=== PATIENT | female | born 1940 | race Caucasian/White ===

== ENCOUNTER 2021-12-20 11:15 | Day surgery (SDC) | payer OTHER ==
[2021-12-20] MEDS ORDERED: FERRIC CARBOXYMALTOSE 750 MG in SODIUM CHLORIDE 250 ML IVPB SCH (11:45)
[2021-12-20 13:17] VITALS: BP 125/50; PULSE 58; RESP 16; TEMP 99
== END 2021-12-20 14:00 | disposition home or self-care (01) ==
LOC: FM/S 11:15 → FINFUSION 11:15
PROVIDERS: ATTEND Nurse Practitioner Adult Health
PROC: 3E033GC Introduction of Other Therapeutic Substance into Peripheral Vein, Percutaneous Approach (ICD-10-PCS; principal; 2021-12-20)
DX: D50.9 Iron deficiency anemia, unspecified (principal)
CPT/HCPCS: 96365; J1439

== ENCOUNTER 2021-12-27 08:47 | Day surgery (SDC) | payer OTHER ==
[2021-12-27] MEDS ORDERED: FERRIC CARBOXYMALTOSE 750 MG in SODIUM CHLORIDE 250 ML IVPB SCH (09:15)
[2021-12-27 10:58] VITALS: BP 142/50; PULSE 68; RESP 16; TEMP 99
== END 2021-12-27 11:14 | disposition home or self-care (01) ==
LOC: FINFUSION 08:47 → FM/S 08:53 → FINFUSION 11:14
PROVIDERS: ATTEND Nurse Practitioner Adult Health
PROC: 3E033GC Introduction of Other Therapeutic Substance into Peripheral Vein, Percutaneous Approach (ICD-10-PCS; principal; 2021-12-27)
DX: D50.9 Iron deficiency anemia, unspecified (principal)
CPT/HCPCS: 96365; J1439

== ENCOUNTER 2023-01-18 11:21 | Inpatient (IN) | payer OTHER ==
[~2023-01-18 11:21] MED LIST: SODIUM CHLORIDE 0.9% 500 ML INFUS.BAG IV ONE
[2023-01-18] MEDS ORDERED: SODIUM CHLORIDE 0.9% 500 ML INFUS.BAG IV ONE (12:32)
[2023-01-18 13:35] LABS: BASO % 0.3 % (0-2.0); HEMATOCRIT 38.8 % (32.4-45.2); HEMOGLOBIN 12.6 GM/dL (10.7-15.3); LYMPH % 6.1 % (8-40); MCH 29.6 pg (25.7-33.7); MCHC 32.5 g/dl (32.0-36.0); MONO % 6.9 % (3.8-10.2); NEUT % 86.7 % (42.8-82.8); RBC 4.27 M/mm3 (3.60-5.2); RDW 13.1 % (11.6-15.6); WHITE BLOOD COUNT 13.3 K/mm3 (4.0-10.0)
[2023-01-18 13:42] LABS: INR 1.07 (0.83-1.09); PROTHROMBIN TIME (PATIENT) 12.4 SEC (9.7-13.0)
[2023-01-18 13:51] LABS: ACTIVATED PTT 16.6 SECONDS (25.2-36.5)
[2023-01-18 14:03] LABS: POTASSIUM 4.1 mmol/L (3.5-5.1)
[2023-01-18 14:05] LABS: ALBUMIN 3.6 g/dl (3.4-5.0); BLOOD UREA NITROGEN 18.5 mg/dL (7-18); CALCIUM 8.6 mg/dL (8.5-10.1); MAGNESIUM 1.9 mg/dL (1.8-2.4)
[2023-01-18 14:10] LABS: BILIRUBIN,TOTAL 0.7 mg/dL (0.2-1); CREATININE 0.7 mg/dL (0.55-1.3); TOT PROT 7.1 g/dl (6.4-8.2)
[2023-01-18 14:11] LABS: LACTIC ACID 2.4 mmol/L (0.4-2.0)
[2023-01-18 14:52] LABS: MEAN PLT VOLUME 9.7 fl (7.5-11.1); PLATELET COUNT 167 10^3/uL (134-434)
[2023-01-18 15:52] LABS: EPI CELLS 13 /uL (0-25.1); HYALINE CASTS 0 /uL (0-3.1); URINE APPEARANCE CLEAR; URINE BACTERIA 120 /uL (0-1359); URINE BILIRUBIN NEGATIVE (NEGATIVE); URINE COLOR YELLOW; URINE GLUCOSE (UA) NEGATIVE (NEGATIVE); URINE KETONE 1+ (NEGATIVE); URINE LEUK ESTERASE TRACE (NEGATIVE); URINE NITRITE NEGATIVE (NEGATIVE); URINE PROTEIN 1+ (NEGATIVE); URINE RBC 17 /uL (0-23.9); URINE UROBILINOGEN 0.2 mg/dL (0.2-1.0); URINE WBC 33 /uL (0-25.8)
[2023-01-18] MEDS ORDERED: VANCOMYCIN 1,000 MG in DEXTROSE 5%-WATER - 250 ML IVPB ONE (16:22)
[2023-01-18] MEDS ORDERED: VANCOMYCIN 1 GRAM (PRE-DOCKED) 1,000 MG/250 ML BAG IVPB ONE (16:37)
[2023-01-18 21:21] VITALS: BMI 20.2
[2023-01-18] MEDS ORDERED: ACETAMINOPHEN 325 MG TABLET (FP) PO PRN (21:57)
[2023-01-18] MEDS: ATORVASTATIN CA 20 MG TABLET (FP) PO SCH (22:57)
[2023-01-18] MEDS: LATANOPROST 0.005% OPHTH SOLN 2.5ML BOTTLE OU SCH (23:00)
[2023-01-19] MEDS ORDERED: VANCOMYCIN/WATER FOR INJ (PEG) 1,000 MG/200 ML BAG IVPB SCH (05:00)
[2023-01-19] MEDS ORDERED: VANCOMYCIN 1,000 MG in DEXTROSE 5%-WATER - 250 ML IVPB SCH (05:00)
[2023-01-19 09:37] LABS: BASO % 0.7 % (0-2.0); EOS % 0.4 % (0-4.5); HEMATOCRIT 35.5 % (32.4-45.2); HEMOGLOBIN 11.8 GM/dL (10.7-15.3); LYMPH % 18.7 % (8-40); MCH 30.1 pg (25.7-33.7); MCHC 33.3 g/dl (32.0-36.0); MEAN CELL VOLUME 90.3 fl (80-96); MEAN PLT VOLUME 9.2 fl (7.5-11.1); NEUT % 68.2 % (42.8-82.8); PLATELET COUNT 178 10^3/uL (134-434); RBC 3.93 M/mm3 (3.60-5.2); RDW 13.4 % (11.6-15.6); WHITE BLOOD COUNT 9.7 K/mm3 (4.0-10.0)
[2023-01-19 10:17] LABS: POTASSIUM 3.7 mmol/L (3.5-5.1)
[2023-01-19 10:28] LABS: BLOOD UREA NITROGEN 15.2 mg/dL (7-18); CALCIUM 8.2 mg/dL (8.5-10.1); MAGNESIUM 1.9 mg/dL (1.8-2.4)
[2023-01-19 10:31] LABS: CREATININE 0.6 mg/dL (0.55-1.3)
[2023-01-19 10:32] LABS: BILIRUBIN,TOTAL 0.8 mg/dL (0.2-1); TOT PROT 6.2 g/dl (6.4-8.2)
[2023-01-19] MEDS: LATANOPROST 0.005% OPHTH SOLN 2.5ML BOTTLE OU SCH (21:11)
[2023-01-19] MEDS: ATORVASTATIN CA 20 MG TABLET (FP) PO SCH (21:12)
[2023-01-20] MEDS ORDERED: LACTATED RINGERS SOLUTION 1,000 ML/1,000 ML INFUS.BAG IV SCH (17:30)
[2023-01-20] MEDS: ATORVASTATIN CA 20 MG TABLET (FP) PO SCH (21:45)
[2023-01-20] MEDS: LATANOPROST 0.005% OPHTH SOLN 2.5ML BOTTLE OU SCH (21:46)
[2023-01-21] MEDS ORDERED: ASPIRIN 81 MG CHEWABLE TABLETS PO SCH (13:30)
[2023-01-21 20:42] VITALS: PULSE 86
[2023-01-21] MEDS: LATANOPROST 0.005% OPHTH SOLN 2.5ML BOTTLE OU SCH (21:37)
[2023-01-21] MEDS ORDERED: HEPARIN NA (PORCINE) 5,000 UNITS/ML 1ML VIAL SQ SCH (22:00)
[2023-01-21] MEDS ORDERED: ATORVASTATIN CA 40 MG TABLET (FP) PO SCH (22:00)
[2023-01-21 23:31] VITALS: BP 133/76; RESP 20; TEMP 100.2
== END 2023-01-21 23:30 | disposition short-term general hospital (02) | DRG 64 ==
LOC: JER 11:21 → JERBED 18:39 → J4W 20:37
PROVIDERS: ADMIT Internal Medicine; ATTEND Family Medicine
DX: I63.511 Cerebral infarction due to unspecified occlusion or stenosis of right middle cerebral artery (principal); G93.41 Metabolic encephalopathy; T63.441A Toxic effect of venom of bees, accidental (unintentional), initial encounter; Y92.89 Other specified places as the place of occurrence of the external cause; E78.5 Hyperlipidemia, unspecified; R55 Syncope and collapse; R42 Dizziness and giddiness; Z85.3 Personal history of malignant neoplasm of breast
CPT/HCPCS: 0241U-QW; 36415; 70450-TC; 70496-TC; 70551-TC; 71045-TC-FY; 72100-TC-FY; 72125-TC; 73110-TC-LT-FY; 73130-TC-LT-FY; 80053; 80061; 81003; 82550; 82553; 82962; 83605; 83735; 84443; 84484; 85025; 85610; 85730; 87040; 87086; 93005; 93010; 93306-TC; 93880-TC; 97116-GP; 97161-GP; 99285-25; J1644; Q9967

== ENCOUNTER 2024-09-12 10:11 | Inpatient (IN) | payer OTHER ==
[2024-09-12] MEDS ORDERED: levETIRAcetam 500 MG/5 ML INJECTION VIAL IVPB ONE (11:02)
[2024-09-12] MEDS: levETIRAcetam 500 MG/5 ML INJECTION VIAL IVPB ONE (11:07)
[2024-09-12 11:21] LABS: ABSOLUTE IMMATURE GRANULOCYTES 0.02 x10^3/uL (0.0-0.031); BASOPHILS # 0.02 x10^3/uL (0.01-0.08); EOSINOPHIL % 0.9 % (0.7-5.8); EOSINOPHILS # 0.05 x10^3/uL (0.04-0.36); HEMATOCRIT 37.9 % (34.1-44.9); HEMOGLOBIN 11.8 g/dL (11.2-15.7); MCHC 31.1 g/dl (32.2-35.5); MEAN CELL VOLUME 97.7 fl (79.4-94.8); MEAN PLT VOLUME 9.4 fl (9.4-12.3); MONOCYTE # 0.37 x10^3/uL (0.24-0.86); MONOCYTE % 6.3 % (4.7-12.5); PLATELET COUNT 229 x10^3/uL (182-369); RDW 13.6 % (12.5-17.0)
[2024-09-12 11:28] LABS: INR 1.47 (0.83-1.09); PROTHROMBIN TIME (PATIENT) 16.2 SEC (9.7-13.0)
[2024-09-12 11:31] LABS: ACTIVATED PTT 29.4 SECONDS (25.2-36.5)
[2024-09-12 11:43] LABS: POTASSIUM 4.1 mmol/L (3.5-5.1)
[2024-09-12 11:46] LABS: ALBUMIN 3.5 g/dl (3.4-5.0)
[2024-09-12 11:49] LABS: CREATININE 0.5 mg/dL (0.55-1.3)
[2024-09-12 11:50] LABS: TOT PROT 6.9 g/dl (6.4-8.2)
[2024-09-12 11:52] LABS: BILIRUBIN,TOTAL 0.6 mg/dL (0.2-1)
[2024-09-12 14:53] LABS: EPI CELLS 3 /uL (0-25.1); HYALINE CASTS 0 /uL (0-3.1); PH,URINE 7.5 (5.0-8.0); URINE APPEARANCE CLEAR; URINE BACTERIA 4 /uL (0-1359); URINE BILIRUBIN NEGATIVE (NEGATIVE); URINE COLOR YELLOW; URINE GLUCOSE (UA) NEGATIVE (NEGATIVE); URINE KETONE NEGATIVE (NEGATIVE); URINE LEUK ESTERASE NEGATIVE (NEGATIVE); URINE NITRITE NEGATIVE (NEGATIVE); URINE PROTEIN TRACE (NEGATIVE); URINE RBC 387 /uL (0-23.9); URINE UROBILINOGEN 0.2 mg/dL (0.2-1.0); URINE WBC 3 /uL (0-25.8)
[2024-09-12] MEDS ORDERED: LORazepam 2 MG/ML SDV VIAL IVPUSH STA (17:12)
[2024-09-12 17:32] VITALS: BMI 17.2
[2024-09-12] MEDS: RIVAROXABAN 20 MG TABLET PO SCH (21:20)
[2024-09-12] MEDS: ATORVASTATIN CA 40 MG TABLET (FP) PO SCH (21:20)
[2024-09-12] MEDS: levETIRAcetam 500 MG TABLET (FP) PO SCH (21:20)
[2024-09-13 06:53] LABS: ABSOLUTE IMMATURE GRANULOCYTES 0.01 x10^3/uL (0.0-0.031); BASOPHILS # 0.04 x10^3/uL (0.01-0.08); EOSINOPHIL % 1.3 % (0.7-5.8); HEMATOCRIT 34.8 % (34.1-44.9); MCHC 31.6 g/dl (32.2-35.5); MEAN CELL VOLUME 95.9 fl (79.4-94.8); MEAN PLT VOLUME 9.6 fl (9.4-12.3); MONOCYTE # 0.98 x10^3/uL (0.24-0.86); MONOCYTE % 12.9 % (4.7-12.5); PLATELET COUNT 243 x10^3/uL (182-369); RDW 13.4 % (12.5-17.0)
[2024-09-13 07:15] LABS: ALBUMIN 3.1 g/dl (3.4-5.0); CALCIUM 9.3 mg/dL (8.5-10.1)
[2024-09-13 07:16] LABS: BLOOD UREA NITROGEN 21.4 mg/dL (7-18); MAGNESIUM 1.7 mg/dL (1.8-2.4)
[2024-09-13 07:19] LABS: CREATININE 0.6 mg/dL (0.55-1.3); PHOSPHOROUS 3.6 mg/dL (2.5-4.9)
[2024-09-13 07:20] LABS: BILIRUBIN,TOTAL 0.9 mg/dL (0.2-1); TOT PROT 6.2 g/dl (6.4-8.2)
[2024-09-15 01:55] VITALS: RESP 16
[2024-09-15] MEDS: MELATONIN 5 MG TABLETS PO ONE (02:44)
[2024-09-15 09:34] VITALS: BP 118/65; PULSE 86; TEMP 98.2
== END 2024-09-15 13:22 | disposition home health service (06) | DRG 101 ==
LOC: JER 10:11 → JERBED 13:36 → J4S 14:49 → OBSVTOIN 16:11
PROVIDERS: ADMIT Family Medicine; ATTEND Family Medicine
DX: R56.9 Unspecified convulsions (principal); I48.20 Chronic atrial fibrillation, unspecified; I69.354 Hemiplegia and hemiparesis following cerebral infarction affecting left non-dominant side; I10 Essential (primary) hypertension; Z85.3 Personal history of malignant neoplasm of breast; E78.5 Hyperlipidemia, unspecified
CPT/HCPCS: 36415; 70450-TC; 70496-TC; 70498-TC; 70551-TC; 71045-TC-FY; 80053; 80061; 81003; 82550; 82962; 83036; 83735; 84100; 84443; 84484; 85025; 85610; 85730; 86850; 86900; 86901; 93005; 93010; 93306-TC; 97116-GP; 97161-GP; 99291; G0378